=== PATIENT | female | born 1960 | race Caucasian/White ===

== ENCOUNTER 2016-12-17 06:49 | Inpatient (IN) | payer BC ==
[~2016-12-17] VITALS: Ht 167.6 cm; Wt 73.1 kg
[~2016-12-17 06:49] MED LIST: ALBUTEROL SULF8.5 GM IH; Aspirin E.C. PO; BENAZEPRIL HCL10 MG PO; BENAZEPRIL HCL40 MG PO; Bactrim,Septra DS 80 PO; CATAPRES-TTS 30.3 MG; Catapres PO; DOCUSATE SODIU100 MG PO; FLEXERIL10 MG PO; IBUPROFEN600 MG PO; IRON325 M1 PO; K-DUR10 MEQ PO; K-DUR20 MEQ PO; LIDODERM 5% P1 PATCH TD; MILK OF MAGN PO; MOTRIN IB200 MG PO; NORCO 5/3251 TABLET PO; PERCOCET 5/31 TABLET PO; PREDNISONE20 MG PO; PREDNISONE50 MG PO; Percocet 5/325,Endoc PO; TOPROL XL100 MG PO; TOPROL XL50 MG PO; TRIBENZOR PO; ULTRAM50 MG PO; ZITHROMAX250 MG PO; ZOFRAN4 MG PO
[2016-12-17 07:43] VITALS: BP 164/83
[2016-12-17 13:14] LABS: HEMATOCRIT 30.9 % (36.0-46.0); MCH 30.6 PG (29.0-34.0); MCHC 33.3 G/DL (30.0-36.0); MCV 91.7 FL (83-99); MEAN PLAT.VOLUME 10.5 uM^3 (9.5-12.4); PLATELET COUNT 191 K/uL (156-360); RBC DIS.WIDTH-SD 46.9 % (39-53); RED BLOOD COUNT 3.37 M/uL (3.80-5.20); WHITE BLOOD COUNT 6.9 K/uL (4.1-10.2)
[2016-12-17 14:53] VITALS: BP 146/83
[2016-12-17 15:41] VITALS: BP 165/74
[2016-12-17 20:06] VITALS: BP 156/68
[2016-12-17 22:17] VITALS: BP 147/71
[2016-12-18] VITALS (7 sets, daily range): BP systolic 110–140; BP diastolic 59–93
[2016-12-18 05:59] LABS: ANION GAP 8 MEQ/L (2-14); CHLORIDE 106 MEQ/L (99-109); GFR ESTIMATE (CALCULATED) > 59 mL/min/; GLUCOSE 126 mg/dL (70-99); SAMPLE HEMOLYSIS CHECK 0; SAMPLE ICTERIC CHECK 0; SAMPLE LIPEMIA CHECK 0; SODIUM 140 MEQ/L (136-147); UREA NITROGEN (BUN) 6 mg/dL (9-23)
[2016-12-18 14:07] LABS: HEMATOCRIT 32.3 % (36.0-46.0); MCV 92.6 FL (83-99)
[2016-12-19 03:12] VITALS: BP 134/62
[2016-12-19 05:30] LABS: HEMATOCRIT 30.5 % (36.0-46.0)
[2016-12-19 05:55] LABS: ANION GAP 8 MEQ/L (2-14); CHLORIDE 106 MEQ/L (99-109); GFR ESTIMATE (CALCULATED) > 59 mL/min/; GLUCOSE 116 mg/dL (70-99); POTASSIUM 3.1 MEQ/L (3.7-5.4); SAMPLE HEMOLYSIS CHECK 0; SAMPLE ICTERIC CHECK 0; SAMPLE LIPEMIA CHECK 0; SODIUM 141 MEQ/L (136-147); UREA NITROGEN (BUN) 6 mg/dL (9-23)
[2016-12-19 08:25] VITALS: BP 121/74
[2016-12-19] MEDS ORDERED: SENNA PLUS TAB1 EACH PO (08:37)
[2016-12-19] MEDS ORDERED: ENDOCET 5-3251 EACH PO (08:38)
[2016-12-19] MEDS ORDERED: OXYCONTIN10 MG PO (08:38)
[2016-12-19] MEDS ORDERED: LOVENOX40 MG/0.4 SC (08:38)
[2016-12-19] MEDS ORDERED: K-DUR20 MEQ PO (08:38)
[2016-12-19 12:09] VITALS: BP 137/76
== END 2016-12-19 14:20 | disposition home health service (06) | DRG 470 ==
LOC: 3WEST 06:49 → 2SOUTH 06:49 → 3WEST 14:11 → 2SOUTH 14:35 → 3WEST 12-19 14:20
PROVIDERS: Orthopaedic Surgery; Physician Assistant
PROC: 0SRB01Z Replacement of Left Hip Joint with Metal Synthetic Substitute, Open Approach (ICD-10-PCS; principal; 2016-12-17)
DX: M16.12 Unilateral primary osteoarthritis, left hip (principal); I10 Essential (primary) hypertension; E87.6 Hypokalemia
CPT/HCPCS: 73502; 80048; 85014; 85018; 85027; 97530 GP; J0690; J1170; J1650; J2250; J2405; J3010; J7050